=== PATIENT | female | born 1930 | race Caucasian/White ===

== ENCOUNTER 2017-05-21 15:27 | Emergency (ER) | payer MEDICARE, OTHER ==
[2017-05-21] MEDS: AZITHROMYCIN 250 MG TAB PO (22:46)
== END 2017-05-22 00:48 | disposition home or self-care (01) ==
LOC: FTE 05-22 00:48
DX: J20.9 Acute bronchitis, unspecified (principal); I25.10 Atherosclerotic heart disease of native coronary artery without angina pectoris; N18.6 End stage renal disease; Z79.01 Long term (current) use of anticoagulants
CPT/HCPCS: 71045; 87400; 99284-25